=== PATIENT | male | born 1975 | race Caucasian/White ===

== ENCOUNTER 2021-12-20 10:38 | Emergency (ER) | payer MEDICAID, OTHER ==
[~2021-12-20] VITALS: Ht 177.8 cm; Wt 88.5 kg
[~2021-12-20 10:38] MED LIST: IBUP800T27
[2021-12-20 10:58] VITALS: BP 139/95
== END 2021-12-20 11:40 | disposition home or self-care (01) ==
LOC: ER 10:38
DX: S82.832A Other fracture of upper and lower end of left fibula, initial encounter for closed fracture (principal); F17.210 Nicotine dependence, cigarettes, uncomplicated; X50.1XXA Overexertion from prolonged static or awkward postures, initial encounter; Y93.89 Activity, other specified; Y92.89 Other specified places as the place of occurrence of the external cause; Y99.8 Other external cause status
CPT/HCPCS: 29515; 73610

== ENCOUNTER 2023-04-15 08:38 | Emergency (ER) | payer SELFPAY ==
[~2023-04-15] VITALS: Ht 177.8 cm; Wt 90.1 kg
[~2023-04-15 08:38] MED LIST changes: +IBUP-1456; -IBUP800T27
[2023-04-15 09:30] VITALS: BP 134/73
[2023-04-15] MEDS ORDERED: cefTRIAXone SOD 1,000 MG VL IM ONE (10:00)
[2023-04-15] MEDS ORDERED: BACDST PO (10:06)
== END 2023-04-15 10:29 | disposition home or self-care (01) ==
LOC: ER 08:38
DX: L02.91 Cutaneous abscess, unspecified (principal); F17.210 Nicotine dependence, cigarettes, uncomplicated
CPT/HCPCS: 96372; 99283; J0696